=== PATIENT | male | born 1940 | race Caucasian/White ===

== ENCOUNTER → 2019-01-18 | Outpatient (CLI) | payer OTHER | LOC: LAB SHORT 16:33 → LAB 16:33 | DX: L08.9 Local infection of the skin and subcutaneous tissue, unspecified (principal) | CPT/HCPCS: 87070; 87077; 87147; 87186; 87205 ==

== ENCOUNTER 2020-08-31 10:09 | Inpatient (IN) | payer OTHER ==
[~2020-08-31] VITALS: Ht 180.3 cm; Wt 82.1 kg
[2020-08-31 10:41] LABS: BASOPHILS ABSOLUTE AUTO 0.05 K/mm3 (0.00-0.23); BASOPHILS PERCENT AUTO 1 % (0-2); EOSINOPHILS ABSOLUTE AUTO 0.19 K/mm3 (0.00-0.68); EOSINOPHILS PERCENT AUTO 4 % (0-6); Hematocrit 45.7 % (37.0-53.0); Hemoglobin 15.6 g/dL (13.5-17.5); IMMATURE GRAN ABSOLUTE AUTO 0.01 K/mm3 (0.00-0.10); IMMATURE GRAN PERCENT AUTO 0 % (0-1); LYMPHOCYTES ABSOLUTE AUTO 1.21 K/mm3 (0.84-5.20); LYMPHOCYTES PERCENT AUTO 23 % (21-46); MONOCYTES ABSOLUTE AUTO 0.83 K/mm3 (0.16-1.47); MONOCYTES PERCENT AUTO 16 % (4-13); Mean Corpuscular HGB 33.8 pg (26.0-34.0); Mean Corpuscular HGB Conc 34.1 g/dL (31.5-36.5); Mean Corpuscular Volume 99 fL (80-100); Mean Platelet Volume 9.9 fL (9.1-12.4); NEUTROPHILS ABSOLUTE AUTO 3.01 K/mm3 (1.96-9.15); NEUTROPHILS PERCENT AUTO 57 % (41-73); Platelet Count 183 K/mm3 (150-400); RDW Coefficient Variation 13.7 % (11.7-14.2); RDW Standard Deviation 49.7 fL (35.1-46.3); Red Blood Cell Count 4.61 M/mm3 (4.30-5.90)
[2020-08-31 10:49] LABS: Alanine Aminotransfer (ALT/SGP 37 U/L (12-78); Albumin, Blood 3.7 g/dL (3.4-5.0); Albumin/Globulin Ratio 0.9 (0.8-1.8); Alk Phos 40 U/L (50-136); Anion Gap 6 mmol/L (6-16); Aspartate Aminotrans (AST/SGOT 23 U/L (12-37); Bilirubin, Total 1.1 mg/dL (0.1-1.0); Blood Urea Nitrogen 20 mg/dL (8-24); Bun/Creatinine Ratio 22.3 (12.0-20.0); CO2, Blood 27 mmol/L (21-32); Calcium, Blood 8.8 mg/dL (8.5-10.1); Chloride, Blood 109 mmol/L (98-108); Glomerular Filtration Rate >60 (60-); Glucose, Blood 144 mg/dL (70-99); Potassium, Blood 3.6 mmol/L (3.5-5.5); Sodium, Blood 142 mmol/L (136-145); Total Protein, Blood 7.7 g/dL (6.4-8.2); Troponin I <0.015 ng/mL (0.000-0.040)
[2020-08-31] MEDS ORDERED: ZYRTEC10 M2 PO (13:01)
[2020-08-31] MEDS ORDERED: TAMS.4ER PO (13:02)
[2020-08-31] MEDS ORDERED: Simvastatin10 MG PO (13:02)
[2020-08-31] MEDS ORDERED: LOSA25 PO (13:02)
[2020-08-31] MEDS ORDERED: POTCHL20ER PO (13:03)
[2020-08-31] MEDS ORDERED: HYDCHL25 PO (13:03)
[2020-08-31] MEDS ORDERED: LOSA50 PO (13:04)
[2020-08-31] MEDS ORDERED: PANT40 PO (13:17)
[2020-08-31] MEDS ORDERED: Vitamin D2000 UNIT PO (13:18)
[2020-08-31] MEDS ORDERED: Plavix75 MG PO (13:24)
--- NOTE | 2020-08-31 19:27 | NUR ---
SHIFT SUMMARY ADRIA ARRIVED FROM ER AROUND 3PM. DENIED PAIN. INDEP TO BR. TELE SHOWING SINUS ARRYTHMIA. HAD ONE EPISODE OF LOW HR AT 49, PT ASYMPTOMATIC, HR POPPED BACK UP TO 50S. NPO AT [facility] FOR ANGIO TOMORROW. VISITED. CALL LIGHT IN REACH, REPORT GIVEN TO NIGHT NURSE
[2020-08-31 22:12] LABS: Influenza A, PCR Negative (NEGATIVE); Influenza B, PCR Negative (NEGATIVE); Resp Syncytial Virus, PCR Negative (NEGATIVE); SARS-Cov-2 (COVID-19) PCR, MMC Negative (NEGATIVE)
[2020-09-01 06:17] LABS: Anion Gap 6 mmol/L (6-16); Blood Urea Nitrogen 21 mg/dL (8-24); Bun/Creatinine Ratio 20.6 (12.0-20.0); CO2, Blood 25 mmol/L (21-32); Chloride, Blood 111 mmol/L (98-108); Creatinine, Blood 1.02 mg/dL (0.60-1.20); Glomerular Filtration Rate >60 (60-); Glucose, Blood 102 mg/dL (70-99); Potassium, Blood 3.9 mmol/L (3.5-5.5); Sodium, Blood 142 mmol/L (136-145)
--- NOTE | 2020-09-01 06:28 | NUR ---
Rn summary: Patient is alert and oriented. Pt is up independantly in room. Pt has not reported any discomfort this shift. Telemetry has shown sinus arrythmia with 1 degree AV block, rate low to mid 50's. Pt has been resting in bed with eyes closed and light off all night. Pt does get up to BR. Pt has been NPO, plan for Angio this am by Dr. Alicia. Call light in reach.
--- NOTE | 2020-09-01 10:00 | NUR ---
INFORMED DR MONACO OF HOLDING METOPROLOL AM DOSE DUE TO HR LOW 50S
--- NOTE | 2020-09-01 12:27 | NUR ---
Advance Directive (AD) education conducted. Patient is sitting up in bed and alert. Patient tellsme about his medical history and his services ([employer]) and that he thinks he may have something filed at the [place] concerning his Advance care plannig. PAtient asks for the AD booklet which I gladly supply and discuss the purpose and importance as well as the filing process at [facility]. Patient is very appreciative and states that he will go over the AD with his when she returns to the hospital.
--- NOTE | 2020-09-01 18:04 | NUR ---
PATIENT ARRIVED SECOND HALF OF SHIFT FROM [facility]. PATIENT WENT FOR ANGIO, NO STENTS PLACED. VSS, R.RADIAL SITE SHOWS NO SIGNS OF DISCHARGE/HEMATOMA. PATIENT ALERT AND ORIENTED, ABLE TO STAND TO USE URINAL AT BEDSIDE. PATIENT DENIES CHEST PAIN/PRESSURE THIS SHIFT.
--- NOTE | 2020-09-01 21:19 | NUR ---
TR BAND REMOVED TR BAND REMOVED. TEGADERM IN PLACE. SITE WNL. NO HEMATOMA.
--- NOTE | 2020-09-02 05:20 | NUR ---
SHIFT SUMMARY PT SLEPT T/O SHIFT. TR BAND DEFLATED AND ARM BOARD IN PLACE. SITE WNL WITH TEGADERM DRESSING. DRESSING REMAINS C/D/I. PT REPORTS NO CP OR PRESSURE. OXYGEN SATURATION MAINTAINED ABOVE 92% ON RA. BP STABLE. HR STABLE. PT ALERT AND ORIENTED X 4. PT ABLE TO AMBULATE ON OWN NEEDED. WILL CONTINUE TO MONITOR UNTIL REPORT GIVEN TO CLARE GUERRERO.
[2020-09-02] MEDS ORDERED: ATOR20 PO (14:59)
[2020-09-02] MEDS ORDERED: ASPI81CH PO (15:00)
[2020-09-02] MEDS ORDERED: AMLO5 PO (15:00)
[2020-09-02] MEDS ORDERED: METO25ER PO (15:01)
[2020-09-02] MEDS ORDERED: NITR.4SL SL (15:02)
== END 2020-09-02 15:44 | disposition home or self-care (01) | DRG 282 ==
LOC: ER 10:09 → MEDS 10:10 → PCU 09-01 14:04
PROVIDERS: Emergency Medicine; Internal Medicine Interventional Cardiology; Nurse Practitioner Acute Care; ADMIT Hospitalist
PROC: 4A023N7 Measurement of Cardiac Sampling and Pressure, Left Heart, Percutaneous Approach (ICD-10-PCS; principal; 2020-09-01)
PROC: B2111ZZ Fluoroscopy of Multiple Coronary Arteries using Low Osmolar Contrast (ICD-10-PCS; 2020-09-01)
PROC: 4A033BC Measurement of Arterial Pressure, Coronary, Percutaneous Approach (ICD-10-PCS; 2020-09-01)
DX: I21.4 Non-ST elevation (NSTEMI) myocardial infarction (principal); I10 Essential (primary) hypertension; I25.110 Atherosclerotic heart disease of native coronary artery with unstable angina pectoris; E78.5 Hyperlipidemia, unspecified; Z79.02 Long term (current) use of antithrombotics/antiplatelets; K21.9 Gastro-esophageal reflux disease without esophagitis
CPT/HCPCS: 0241U; 36415; 71045; 76937; 80048; 80053; 83880; 84484; 85025; 85347; 93005; 93010; 93306; 93458; 93571; 93572; 96374; 99152; 99153; 99285-25; A9270; A9270-GY; C1769; C1887; C1894; G0378; J0461; J1644; J2250; J3010; J7030; J7050; Q9967

== ENCOUNTER 2022-05-09 09:18 | Observation (INO) | payer OTHER ==
[~2022-05-09] VITALS: Wt 82.0 kg
[~2022-05-09 09:18] MED LIST: AMLO5 PO; ASPI81CH PO; ATOR20 PO; HYDCHL25 PO; LOSA25 PO; LOSA50 PO; METO25ER PO; NITR.4SL SL; PANT40 PO; POTCHL20ER PO; Plavix75 MG PO; Simvastatin10 MG PO; TAMS.4ER PO; Vitamin D2000 UNIT PO; ZYRTEC10 M2 PO
--- NOTE | 2022-05-09 09:30 | NUR ---
ADMIT: Patient is a direct admit, he ambulated into PCU 06. He is accompanied by his and a friend. He is alert and oriented, he states he came in for an ongoing issue with bradycardia, he is being admitted for possible pacemaker placement with Dr. Ledezma. He denies pain at this time. HR Irreg, second degree block with a rate in the 40s-50s. LS CTA, biox WNL on RA. BT+. PPP. He has two plus pitting edema to BLE-pt states this is chronic. IV Placed in the left forearm. Labs and COVID swab sent. Patient and oriented to room and call light. Call light in reach.
[2022-05-09 10:08] LABS: Hematocrit 41.8 % (37.0-53.0); Hemoglobin 14.5 g/dL (13.5-17.5); Mean Corpuscular HGB 33.4 pg (26.0-34.0); Mean Corpuscular HGB Conc 34.7 g/dL (31.5-36.5); Mean Corpuscular Volume 96 fL (80-100); Mean Platelet Volume 9.9 fL (9.1-12.4); Platelet Count 229 K/mm3 (150-400); RDW Coefficient Variation 14.1 % (11.7-14.2); RDW Standard Deviation 50.1 fL (35.1-46.3); Red Blood Cell Count 4.34 M/mm3 (4.30-5.90); White Blood Cell Count 6.06 K/mm3 (4.00-11.30)
[2022-05-09 10:23] LABS: International Normalized Ratio 1.15
[2022-05-09 10:26] LABS: Bun/Creatinine Ratio 28.3 (12.0-20.0); Calcium, Blood 9.1 mg/dL (8.5-10.1); Creatinine, Blood 0.95 mg/dL (0.60-1.20); Potassium, Blood 3.4 mmol/L (3.5-5.5)
[2022-05-09 10:40] LABS: SARS-Cov-2 (COVID-19) PCR, MMC NEGATIVE (NEGATIVE)
--- NOTE | 2022-05-09 15:30 | NUR ---
Update: [facility] to take patient down to the heart center for his pacemaker to be placed.
--- NOTE | 2022-05-09 18:15 | NUR ---
Return from HC: Patient came back from having pacemaker placed. He is alert and oriented. Dr. Ledezma placed a dual chamber pacemaker. The patient looks to be 100% ventricular paced. VSS. Reviewed pacemaker instructions and Dr. Lincoln patient education packet for pacemaker given. Pt and verbalize understanding of discharge instructions. Patient denies other needs at this time. Call light in reach, will continue to monitor.
--- NOTE | 2022-05-09 18:35 | NUR ---
Summary: Patient arrived as a direct admit from Dr. Lincoln office. He arrived for a second degree heart block, to have a pacemaker placed. He is alert and oriented. HR was second degree block with a rate 30s-50s prior to a pacemaker being placed. Upon return from the heart center he is 100% ventricular paced. Pacer site to the right upper chest with pressure dressing in place. Pt has been educated on pacemaker activity restrictions. Right arm in a sling. LS CTA, Biox has been WNL on RA. BT +, Pt is ind to the bathroom to void. Patient is currently resting in bed, call light in reach.
--- NOTE | 2022-05-09 21:11 | NUR ---
ASSUMED CARE OF PATIENT AT APPROXIMATELY 1900 FROM SAMUEL Coto RN. PATIENT ALERT AND ORIENTED X4. PATIENT LAYING IN BED DURING BEDSIDE REPORT; BEDSIDE AND LEFT DURING BEDSIDE REPORT. PATIENT DENIES PAIN, NUMBNESS, TINGLING, DIZZINESS, AND NAUSEA. PACEMAKER SITE COVERED IN CRISTIAN WRAP AND ICE APPLIED; PATIENT REPORTS NON-TENDER. PIV X2 S/L. PACED ON TELE; OXYGEN SATURATION ABOVE 90% ON ROOM AIR. SBA OUT OF BED DUE TO LEFT ARM IN SLING.
--- NOTE | 2022-05-10 06:36 | NUR ---
PATIENT SLEPT ABOUT SEVEN HOURS LAST NIGHT. NO ACUTE CHANGES.
[2022-05-10] MEDS ORDERED: CEPH500 PO (08:55)
--- NOTE | 2022-05-10 10:03 | NUR ---
DISCHARGE SUMMARY PT POD #1 FOR PACEMAKER PLACEMENT. PT RECEIVED MORNING MEDICATIONS AND PACEMAKER INTERROGATED. WENT OVER DISCHARGE INSTRUCTIONS WITH PT AND HIS AND THEY EXHIBITED KNOWLEDGE. ABX PRESCRIPTION CALLED INTO [facility] PER 'S REQUEST. VSS. DISCHARGED HOME WITH .
== END 2022-05-10 10:20 | disposition home or self-care (01) ==
LOC: PCU 09:18
PROVIDERS: ADMIT Internal Medicine Cardiovascular Disease
DX: I44.1 Atrioventricular block, second degree (principal); R42 Dizziness and giddiness; I25.10 Atherosclerotic heart disease of native coronary artery without angina pectoris; I10 Essential (primary) hypertension; E78.5 Hyperlipidemia, unspecified; I25.2 Old myocardial infarction; Z79.82 Long term (current) use of aspirin; Z79.899 Other long term (current) drug therapy; Z20.822 Contact with and (suspected) exposure to COVID-19
CPT/HCPCS: 33208; 71045; 71046; 76937; 80048; 85027; 85610; 96374; 96376; 99152; 99153; A9270; C1781; C1785; C1894; C1898; G0378; J0690; J1644; J2250; J3010; J7030; J7040; U0004

== ENCOUNTER 2022-08-29 11:34 | Day surgery (SDC) | payer OTHER ==
[~2022-08-29] VITALS: Ht 172.7 cm; Wt 84.2 kg
[~2022-08-29 11:34] MED LIST changes: +CEPH500 PO
--- NOTE | 2022-08-29 12:31 | NUR ---
08/29/22 1231 Gisela Londono AT 1226 PLEDGET AT 1228
== END 2022-08-29 13:36 | disposition home or self-care (01) ==
LOC: ORSCSDS 11:34
PROVIDERS: Ophthalmology
PROC: 08RJ3JZ Replacement of Right Lens with Synthetic Substitute, Percutaneous Approach (ICD-10-PCS; principal; 2022-08-29 13:00)
DX: H25.11 Age-related nuclear cataract, right eye (principal); H21.81 Floppy iris syndrome; I10 Essential (primary) hypertension; I25.2 Old myocardial infarction; Z95.0 Presence of cardiac pacemaker; I25.10 Atherosclerotic heart disease of native coronary artery without angina pectoris; Z87.891 Personal history of nicotine dependence; E78.5 Hyperlipidemia, unspecified; K21.9 Gastro-esophageal reflux disease without esophagitis; N40.0 Benign prostatic hyperplasia without lower urinary tract symptoms; Z79.899 Other long term (current) drug therapy; Z79.82 Long term (current) use of aspirin
CPT/HCPCS: J2001; J2250; J3010; J3301; J7120; V2632